=== PATIENT | female | born 1965 | race Caucasian/White ===

== ENCOUNTER 2023-08-22 08:47 | Outpatient (CLI) | payer BC, SELFPAY | END 2023-08-22 08:48 | disposition home or self-care (01) | PROVIDERS: PCP Physician Assistant Medical; Visit Provider Physician Assistant Medical | DX: R53.83 Other fatigue (principal); Z13.220 Encounter for screening for lipoid disorders; Z13.228 Encounter for screening for other metabolic disorders; Z13.29 Encounter for screening for other suspected endocrine disorder; M54.50 Low back pain, unspecified; G89.29 Other chronic pain | CPT/HCPCS: 80053; 80061; 82306; 82310; 82607; 82746; 83970; 84425; 84443; 86301 ==

== ENCOUNTER 2024-08-21 08:15 | Outpatient (CLI) | payer BC, SELFPAY | END 2024-08-21 08:16 | disposition home or self-care (01) | LOC: NFLDREF 08-22 10:03 | PROVIDERS: PCP Physician Assistant Medical; Referring Provider Physician Assistant Medical; Visit Provider Physician Assistant Medical | DX: E03.8 Other specified hypothyroidism (principal); R53.83 Other fatigue | CPT/HCPCS: 80053; 80061; 84443 ==

== ENCOUNTER 2024-08-28 16:28 | Outpatient (CLI) | payer BC, SELFPAY | END 2024-08-28 16:29 | disposition home or self-care (01) | PROVIDERS: PCP Physician Assistant Medical; Visit Provider Physician Assistant Medical | DX: M25.50 Pain in unspecified joint (principal); R53.83 Other fatigue | CPT/HCPCS: 82306; 82607; 84550; 86038; 86140; 86200; 86431; 86618; 86812 ==